=== PATIENT | male | born 1995 | race Caucasian/White ===

== ENCOUNTER 2024-05-28 18:10 | Emergency (ER) | payer MEDICAID ==
[~2024-05-28] VITALS: Ht 175.3 cm; Wt 75.0 kg
[2024-05-28 18:12] VITALS: BP 122/74; PULSE 66; RESP 16; TEMP 36.8; O2SAT 99
== END 2024-05-28 20:43 | disposition left against medical advice (07) ==
LOC: ER 18:10
DX: R51.9 Headache, unspecified (principal); Z53.21 Procedure and treatment not carried out due to patient leaving prior to being seen by health care provider